=== PATIENT | male | born 1980 | race Two or more races ===

== ENCOUNTER 2017-06-18 07:46 | Emergency (ER) | payer OTHER ==
[2017-06-18 07:59] VITALS: BMI 38.9
[2017-06-18] MEDS ORDERED: SODIUM CHLORIDE 1,000 ML IV STA (08:12)
[2017-06-18] MEDS ORDERED: ACETAMINOPHEN 325 MG TABLET (FP) PO ONE (08:12)
[2017-06-18] MEDS ORDERED: METOCLOPRAMIDE HCL INJECTION 10 MG/2 ML VIAL IVPB ONE (08:13)
[2017-06-18] MEDS ORDERED: ACETAMINOPHEN INJECTION 100 ML IVPB ONE (08:14)
[2017-06-18] MEDS ORDERED: ONDANSETRON 4 MG/2 ML VIAL ONE (08:14)
[2017-06-18] MEDS ORDERED: METOCLOPRAMIDE HCL INJECTION 10 MG/2 ML VIAL ONE (08:15)
--- NOTE | 2017-06-18 08:18 | PDOC ---
History of Present Illness - General Chief Complaint: SIRS, Suspected/Possible Stated Complaint: NAUSEA,VOMITING Time Seen by Provider: 06/18/17 08:05 History Source: Patient - History of Present Illness Timing/Duration: reports: other Associated Symptoms: reports: dizziness, fever/chills, headache, lightheadedness , muscle aches. 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 - Family Disease History Family Disease History: CA: Grandparents (Grandfather prostate) - Immunization History Immunization Up to Date: No - Suicide/Smoking/Psychosocial Hx Smoking History: Never smoked Have you smoked in the past 12 months: No Number of Cigarettes Smoked Daily: 2 Information on smoking cessation initiated: No Hx Alcohol Use: No Drug/Substance Use Hx: No Substance Use Type: None Hx Substance Use Treatment: No Review of Systems - Review of Systems Constitutional: Yes: Chills, Fever, Malaise HEENTM: No: Ear Pain, Throat Pain Respiratory: No: Cough, Shortness of Breath Cardiac (ROS): No: Chest Pain ABD/GI: Yes: Diarrhea, Nausea, Vomiting. No: Abdominal cramping : No: Dysuria, Hematuria *Physical Exam - Vital Signs Last Vital Signs Temp Pulse Resp BP Pulse Ox 101.7 F H 110 H 18 134/76 98 06/18/17 07:55 06/18/17 07:55 06/18/17 07:55 06/18/17 07:55 06/18/17 07:55 - Physical Exam General Appearance: Yes: Appropriately Dressed. No: Apparent Distress HEENT: positive: Normal ENT Inspection, Normal Voice. negative: Scleral Icterus (R), Scleral Icterus (L) Neck: positive: Supple. negative: Lymphadenopathy (R), Lymphadenopathy (L) Respiratory/Chest: positive: Lungs Clear, Normal Breath Sounds. negative: Respiratory Distress Cardiovascular: positive: S1, S2, Tachycardia Gastrointestinal/Abdominal: positive: Other (easily reducible ventral hernia to upper mid abd, no ttp) Musculoskeletal: negative: CVA Tenderness Integumentary: positive: Dry, Warm Neurologic: positive: Fully Oriented, Alert, Normal Mood/Affect Heart Score/ECG Review - ECG Intrepretation Comment:: 06/18/17 10:45 Twelve-lead EKG was performed and reviewed by me. There is normal sinus rhythm with a normal rate. The axis is normal. The intervals are normal. There are no ST or T wave abnormalities. Impression: Normal twelve-lead EKG ED Treatment Course - LABORATORY CBC & Chemistry Diagram: 06/18/17 07:40 06/18/17 07:40 - RADIOLOGY Radiology Studies Ordered: Category Date Time Status CHEST PA & LAT [RAD] Stat Radiology 06/18/17 08:12 Ordered Medical Decision Making - Medical Decision Making 06/18/17 08:13 37-year-old male denies any past medical history here with malaise with headache , dizziness, body aches including chest pain, nausea, vomiting, diarrhea and fever 3 days. No abd pain, photophobia, neck stiffness, rash, cough, sob, ear ache or sore throat. States he has a set of twin daughters at home with similar symptoms. No sick contacts. See exam Possibly viral syndrome especially given sick contacts at home, r/o influenza, unlikely PNA and no e/o meningitis Tachy and febrile but non-toxic appearing w/ unremarkable exam otherwise -tylenol -reglan -IVF -labs -cxr -reassess 06/18/17 08:16 06/18/17 10:33 06/18/17 10:44 Labs, chest x-ray and EKG all unremarkable. Patient reports feeling better with meds. Vitals improved and pt able to marti po in ED. Will dc with supportive treatment 06/18/17 10:46 *DC/Admit/Observation/Transfer Diagnosis at time of Disposition: Viral syndrome - Discharge Dispostion Disposition: HOME Condition at time of disposition: Improved - Referrals - Patient Instructions Printed Discharge Instructions: DI for Viral Syndrome Additional Instructions: Rest, drink plenty of fluids and take motrin or tylenol as needed for pain/fever - Post Discharge Activity
[2017-06-18 08:45] LABS: BASOPHIL 0.3 % (0-2.0); MCH 29.9 pg (25.7-33.7); MCHC 33.9 g/dl (32.0-35.9); MEAN CELL VOLUME 88.4 fl (80-96); MEAN PLT VOLUME 6.6 fl (7.5-11.1); PLATELET COUNT 192 K/MM3 (134-434); RDW 13.7 % (11.9-15.9); WHITE BLOOD COUNT 5.7 K/mm3 (4.0-10.0)
[2017-06-18 08:46] LABS: URINE APPEARANCE CLEAR; URINE BILIRUBIN NEGATIVE (NEGATIVE); URINE BLOOD NEGATIVE (NEGATIVE); URINE COLOR YELLOW; URINE GLUCOSE (UA) NEGATIVE (NEGATIVE); URINE KETONE NEGATIVE (NEGATIVE); URINE LEUK ESTERASE NEGATIVE (NEGATIVE); URINE NITRITE NEGATIVE (NEGATIVE)
[2017-06-18 08:56] LABS: URINE MUCUS RARE; URINE PROTEIN 1+ (NEGATIVE); URINE RBC 17 /hpf (0-3); URINE WBC 1 /hpf (3-5)
[2017-06-18 09:44] LABS: ALBUMIN 4.1 g/dl (3.4-5.0); ANION GAP 8 (8-16); CALCIUM 8.5 mg/dL (8.5-10.1); CO2 29 mmol/L (21-32); GLUCOSE,RANDOM 106 mg/dL (74-106); SGPT/ALT 59 U/L (12-78)
[2017-06-18 09:47] LABS: ALK PHOS 82 U/L (45-117); BILIRUBIN,TOTAL 1.1 mg/dL (0.2-1.0); CREATININE 1.1 mg/dL (0.7-1.3); SGOT/AST 49 U/L (15-37); TOT PROT 7.7 g/dl (6.4-8.2)
[2017-06-18 10:37] VITALS: BP 116/65; PULSE 86; TEMP 99
[2017-06-18 14:11] LABS: URINE LEUK ESTERASE Negative (NEGATIVE)
--- NOTE | 2017-06-18 22:03 | EKG ---
Test Reason : Blood Pressure : / mmHG Vent. Rate : 081 BPM Atrial Rate : 081 BPM P-R Int : 140 ms QRS Dur : 100 ms QT Int : 376 ms P-R-T Axes : 044 030 036 degrees QTc Int : 436 ms NORMAL SINUS RHYTHM INCOMPLETE RBBB WHEN COMPARED WITH ECG OF 22-SEP-2014 12:09, NO SIGNIFICANT CHANGE WAS FOUND Confirmed by SAIDA BOYD MD ([id number]) on 06/18/2017 10:02:40 PM Referred By: Confirmed By:SAIDA BOYD MD
== END 2017-06-18 10:53 | disposition home or self-care (01) ==
LOC: JER 07:46
PROC: 3E0337Z Introduction of Electrolytic and Water Balance Substance into Peripheral Vein, Percutaneous Approach (ICD-10-PCS; principal; 2017-06-18)
PROC: 3E033GC Introduction of Other Therapeutic Substance into Peripheral Vein, Percutaneous Approach (ICD-10-PCS; 2017-06-18)
DX: B34.9 Viral infection, unspecified (principal)
CPT/HCPCS: 36415; 71020-TC; 80053; 81003; 81015; 83605; 85025; 87086; 87804; 93005; 93010; 96361; 96374; 99285-25

== ENCOUNTER 2018-08-09 08:22 | Emergency (ER) | payer OTHER ==
--- NOTE | 2018-08-09 08:32 | PDOC ---
History of Present Illness - History of Present Illness Initial Comments: This patient is a 38 year old male with PMHx of juvenile arthritis, who presents with left arm, hand, and foot numbness, tingling, and generalized weakness since 6 am this morning. He states that the numbness and tingling comes and goes. He also notes feeling lightheaded and occasionally has sharp pains along his left side/flank. Patient also reports that for the past 3 weeks , he has been experiencing nausea (constant), vomit, and leg spasms/cramps. He also reports loose watery stools (no blood). 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 He states that he lost a lot of weight over the past year since Aug 2017 329 --> 250lbs. Social Hx: Denies cigarette, alcohol, or marijuana use. Works 3 jobs (parking lot maintenance, stock) Family Hx: TIA(mother) and diabetes. Grandfather prostate [place] PMD: Sandy Morrow M.D.(last saw 2 yrs ago) <Betsy Hoyos - Last Filed: 08/09/18 11:04> <Km Santillan - Last Filed: 08/09/18 13:55> - General Chief Complaint: Weakness Stated Complaint: WEAKNESS Time Seen by Provider: 08/09/18 08:32 Past History <Betsy Hoyos - Last Filed: 08/09/18 11:04> - Past Medical History COPD: No Kidney Stones: Yes (X2) - Family Disease History Family Disease History: CA: Grandparents (Grandfather prostate) - Immunization History Immunization Up to Date: No - Suicide/Smoking/Psychosocial Hx Smoking History: Never smoked Have you smoked in the past 12 months: No Number of Cigarettes Smoked Daily: 2 Information on smoking cessation initiated: No Hx Alcohol Use: No Drug/Substance Use Hx: No Substance Use Type: None Hx Substance Use Treatment: No <Km Santillan - Last Filed: 08/09/18 13:55> - Past Medical History Allergies/Adverse Reactions: Allergies Allergy/AdvReac Type Severity Reaction Status Date / Time No Known Allergies Allergy Verified 08/09/18 08:28 Home Medications: Ambulatory Orders Ondansetron [Zofran *Odt*] 8 mg SL TID #20 od.tablet 08/09/18 Review of Systems - Review of Systems Comments:: CONSTITUTIONAL: No fever, no chills, +generalized weakness. EYES: No visual changes ENT: No ear pain, no sore throat CARDIOVASCULAR: No chest pain, no palpitations RESPIRATORY: No cough, no SOB GI: No abdominal pain, +nausea, +vomiting, no constipation, +diarrhea GENITOURINARY: No dysuria, no frequency, no hematuria MUSKULOSKELETAL: +left side pain. +legs spasms/cramps. No back pain, no joint pain. SKIN: No rash NEURO: +left hand, arm and foot numbness and tingling. +lightheaded. No headache <Betsy Hoyos - Last Filed: 08/09/18 11:04> *Physical Exam - Vital Signs Last Vital Signs Temp Pulse Resp BP Pulse Ox 99.6 F 95 H 16 139/81 100 08/09/18 08:22 08/09/18 08:22 08/09/18 08:22 08/09/18 08:22 08/09/18 08:22 - Physical Exam Comments: CONSTITUTIONAL: Well-appearing; well-nourished; in no apparent distress HEAD: Normocephalic; atraumatic EYES: PERRL; EOM intact ENMT: External appears normal; normal oropharynx NECK: Supple; nontender; no cervical lymphadenopathy CARD: Normal S1, S2; no murmurs, rubs, or gallops RESP: Normal chest excursion with respiration; breath sounds clear and equal bilaterally; no wheezes, rhonchi, or rales ABD: Soft, non-distended; non-tender; no palpable organomegaly, no palpable hernias EXT: Normal ROM in all four extremities; non-tender to palpation; distal pulses intact SKIN: Warm, dry, no rash NEURO: No focal neurological deficiencies.CN II-XII grossly intact. Strength prox and distally 5/5 throughout. Sensation grossly intact to light touch. No cerebellar signs, no dysmetria, bilateral finger to nose and heel to ventura equal and symmetric.No pronator drift. Speech clear. <Betsy Hoyos - Last Filed: 08/09/18 11:04> - Vital Signs Last Vital Signs Temp Pulse Resp BP Pulse Ox 99.6 F 95 H 16 139/81 100 08/09/18 08:22 08/09/18 08:22 08/09/18 08:22 08/09/18 08:22 08/09/18 08:22 <Km Santillan - Last Filed: 08/09/18 13:55> Moderate Sedation - Procedure Monitoring Vital Signs: Procedure Monitoring Vital Signs Temperature 99.6 F 08/09/18 08:22 Pulse Rate 95 H 08/09/18 08:22 Respiratory Rate 16 08/09/18 08:22 Blood Pressure 139/81 08/09/18 08:22 O2 Sat by Pulse Oximetry (%) 100 08/09/18 08:22 <Betsy Hoyos - Last Filed: 08/09/18 11:04> - Procedure Monitoring Vital Signs: Procedure Monitoring Vital Signs Temperature 99.6 F 08/09/18 08:22 Pulse Rate 95 H 08/09/18 08:22 Respiratory Rate 16 08/09/18 08:22 Blood Pressure 139/81 08/09/18 08:22 O2 Sat by Pulse Oximetry (%) 100 08/09/18 08:22 <Km Santillan - Last Filed: 08/09/18 13:55> Heart Score/ECG Review - ECG Intrepretation Comment:: Vent rate 83 bpm Normal sinus rhythm Incomplete right bundle branch block Taken 09-Aug-2018 8:33:38 08/09/18 08:35 <Betsy Hoyos - Last Filed: 08/09/18 11:04> ED Treatment Course - LABORATORY CBC & Chemistry Diagram: 08/09/18 09:36 08/09/18 09:36 <Betsy Hoyos - Last Filed: 08/09/18 11:04> - LABORATORY CBC & Chemistry Diagram: 08/09/18 09:36 08/09/18 09:36 <Km Santillan - Last Filed: 08/09/18 13:55> Medical Decision Making - Medical Decision Making 08/09/18 10:56 Patient is a 38-year-old male who presents to the ER with multiple vague complaints including intermittent nausea for the past 3 weeks without associated abdominal pain, intermittent diarrhea, dizziness, lightheadedness, muscle cramping, left hand and arm paresthesias as well as left foot paresthesias that started on the day of arrival. In the ER, patient is awake and alert, afebrile, nontoxic appearing. Neurological exam revealed no focal deficits; distal pulses are equal and present bilaterally. Cap refill is normal bilaterally. Fine touch and proprioception are intact bilaterally to upper and lower extremities. DTRs are present and normal bilaterally. Initial abdominal exam revealed no focal tenderness. Repeat abdominal exam after patient complained of mild nonspecific left upper quadrant pain revealed minimal discomfort on deep palpation only. Will administer Pepcid and Maalox. We'll continue with IV fluid resuscitation. 08/09/18 13:51 Patient resting comfortably. Patient able to tolerate a meal in the ER. Repeat abdominal exam reveals no focal tenderness. I do not suspect SBO or acute diverticulitis or colitis at this time. Will discharge with antiemetics, H2 blockers and outpatient follow-up. <Km Santillan - Last Filed: 08/09/18 13:55> *DC/Admit/Observation/Transfer - Attestations Scribe Attestion: 08/09/18 09:18 Documentation prepared by Betsy Hoyos, acting as medical delivery driver for Km Santillan MD. <Betsy Hoyos - Last Filed: 08/09/18 11:04> - Attestations Physician Attestion: 08/09/18 10:56 The documentation was prepared by the scribe under my direct supervision. I have reviewed the documentation which correctly represents the findings, medical decision-making and critical action taken by me. <Km Santillan - Last Filed: 08/09/18 13:55> Diagnosis at time of Disposition: Abdominal pain Qualifiers: Abdominal location: left upper quadrant Qualified Code(s): R10.12 - Left upper quadrant pain - Discharge Dispostion Disposition: HOME Condition at time of disposition: Stable - Referrals Referrals: Juan David Manzano DO [Staff Physician] - - Patient Instructions Printed Discharge Instructions: DI for Abdominal Pain-Adult, DI for Nausea -- Adult Additional Instructions: Please take Zantac-150 mg twice daily. Follow-up with GI. Return immediately for worsening symptoms. - Post Discharge Activity Forms/Work/School Notes: Back to Work
[2018-08-09 08:33] VITALS: BMI 30.8
[2018-08-09] MEDS ORDERED: SODIUM CHLORIDE 1,000 ML IV STA ×2 (09:07→10:48)
[2018-08-09 10:32] LABS: ALBUMIN 4.1 g/dl (3.4-5.0); ALK PHOS 66 U/L (45-117); ANION GAP 7 MMOL/L (8-16); BILIRUBIN,TOTAL 0.8 mg/dL (0.2-1); BLOOD UREA NITROGEN 12 mg/dL (7-18); CHLORIDE 101 mmol/L (98-107); CO2 29 mmol/L (21-32); CREATININE 1.1 mg/dL (0.55-1.3); GLUCOSE,RANDOM 82 mg/dL (74-106); MAGNESIUM 1.9 mg/dL (1.8-2.4); POTASSIUM 4.2 mmol/L (3.5-5.1); SGOT/AST 29 U/L (15-37); SGPT/ALT 29 U/L (13-61); SODIUM 137 mmol/L (136-145); TOT PROT 7.4 g/dl (6.4-8.2)
[2018-08-09 10:34] LABS: INR 0.97 (0.83-1.09); PROTHROMBIN TIME (PATIENT) 11.5 SEC (9.7-13.0)
[2018-08-09 10:52] LABS: URINE APPEARANCE CLEAR; URINE BILIRUBIN NEGATIVE (<2.0 mg/dL); URINE COLOR YELLOW; URINE GLUCOSE (UA) NEGATIVE (NEGATIVE); URINE KETONE NEGATIVE (NEGATIVE); URINE LEUK ESTERASE NEGATIVE (NEGATIVE); URINE NITRITE NEGATIVE (NEGATIVE); URINE PROTEIN NEGATIVE (NEGATIVE)
[2018-08-09] MEDS ORDERED: MAG HYDROX/AL HYDROX/SIMETH 30 ML UNIT-DOSE CUP ONE (10:57)
[2018-08-09] MEDS ORDERED: MAG HYDROX/AL HYDROX/SIMETH -MYLANTA- ORAL SUSPENSION PO ONE (11:01)
[2018-08-09] MEDS ORDERED: FAMOTIDINE 20 MG/50 ML IVPB 20 MG/50 ML MG IVPB ONE (11:01)
[2018-08-09 11:25] LABS: BASO % 0.7 % (0-2.0); EOS % 0.6 % (0-4.5); HEMATOCRIT 45.7 % (35.4-49); HEMOGLOBIN 15.6 GM/dL (11.7-16.9); LYMPH % 12.3 % (8-40); MCH 30.9 pg (25.7-33.7); MCHC 34.1 g/dl (32.0-35.9); MEAN CELL VOLUME 90.6 fl (80-96); MEAN PLT VOLUME 7.2 fl (7.5-11.1); MONO % 13.6 % (3.8-10.2); NEUT % 72.8 % (42.8-82.8); PLATELET COUNT 198 K/MM3 (134-434); RBC 5.04 M/mm3 (4.00-5.60); RDW 13.4 % (11.9-15.9)
[2018-08-09] MEDS ORDERED: ACETAMINOPHEN 325 MG TABLET (FP) ONE (12:21)
[2018-08-09] MEDS ORDERED: ACETAMINOPHEN 500 MG TABLET (FP) PO ONE (13:11)
--- NOTE | 2018-08-09 15:00 | EKG ---
Test Reason : Blood Pressure : / mmHG Vent. Rate : 083 BPM Atrial Rate : 083 BPM P-R Int : 144 ms QRS Dur : 104 ms QT Int : 364 ms P-R-T Axes : 044 034 037 degrees QTc Int : 427 ms NORMAL SINUS RHYTHM INCOMPLETE RIGHT BUNDLE BRANCH BLOCK BORDERLINE ECG WHEN COMPARED WITH ECG OF 18-JUN-2017 10:37, NO SIGNIFICANT CHANGE WAS FOUND Confirmed by TING FONTAINE MD ([id number]) on 08/09/2018 3:00:35 PM Referred By: Confirmed By:TING FONTAINE MD
[2018-08-09 15:38] VITALS: BP 120/63; PULSE 73; TEMP 98
== END 2018-08-09 15:37 | disposition home or self-care (01) ==
LOC: JER 08:22
PROC: 3E033GC Introduction of Other Therapeutic Substance into Peripheral Vein, Percutaneous Approach (ICD-10-PCS; principal; 2018-08-09)
PROC: 3E0337Z Introduction of Electrolytic and Water Balance Substance into Peripheral Vein, Percutaneous Approach (ICD-10-PCS; 2018-08-09)
DX: R10.12 Left upper quadrant pain (principal)
CPT/HCPCS: 36415; 80053; 81003; 83735; 85025; 85610; 93005; 93010; 99284-25; J7030

== ENCOUNTER 2019-03-14 07:22 | Emergency (ER) | payer OTHER ==
[2019-03-14 07:37] VITALS: BP 136/82; PULSE 74; TEMP 98.4; BMI 35.4
[2019-03-14] MEDS ORDERED: SODIUM CHLORIDE 1,000 ML IV STA (08:50)
[2019-03-14] MEDS ORDERED: PANTOPRAZOLE SODIUM 40 MG in SODIUM CHLORIDE 100 ML IVPB ONE (08:50)
[2019-03-14] MEDS ORDERED: ACETAMINOPHEN 1000 MG/100 ML VIAL (NON FORMULARY) IVPB ONE (08:50)
--- NOTE | 2019-03-14 09:13 | PDOC ---
Documentation entered by Lea Aaron SCRIBE, acting as scribe for Mario Dunn MD. Mario Dunn MD: This documentation has been prepared by the Galen conn Sammi, SCRIBE, under my direction and personally reviewed by me in its entirety. I confirm that the documentation accurately reflects all work, treatment, procedures, and medical decision making performed by me. History of Present Illness - General Chief Complaint: Chest Pain Stated Complaint: CHEST PAIN,ABDOMINAL PAIN,HEADACHE Time Seen by Provider: 03/14/19 08:17 - History of Present Illness Initial Comments: 03/14/19 08:54 The patient is a 38 year old male who presents to the emergency department for evaluation of 2 days of left sided abdominal pain with associated vomiting and diarrhea. Patient reports history of bilateral kidney stones back in August and notes removal of the stones on the left side. He states his pain today is somewhat similar to when he had the stones but localized to his LLQ. Denies F/ C. Pt also reports intermittent chest pain x 6 months. Denies exertional or pleuritic nature of pain. Denies SOB. Denies aggravating or alleviating factors. PCP: Jayesh Morrow Medical history: kidney stones Allergies: NKA Past History - Past Medical History Allergies/Adverse Reactions: Allergies Allergy/AdvReac Type Severity Reaction Status Date / Time No Known Allergies Allergy Verified 03/14/19 07:37 Home Medications: Ambulatory Orders Ondansetron [Zofran *Odt*] 8 mg SL TID #20 od.tablet 08/09/18 COPD: No Kidney Stones: Yes (X2) Other medical history: ARTHRITIS - Family Disease History Family Disease History: CA: Grandparents (Grandfather prostate) - Immunization History Immunization Up to Date: No - Suicide/Smoking/Psychosocial Hx Smoking History: Never smoked Have you smoked in the past 12 months: No Number of Cigarettes Smoked Daily: 2 Hx Alcohol Use: No Drug/Substance Use Hx: No Substance Use Type: None Hx Substance Use Treatment: No Review of Systems - Review of Systems Comments:: 03/14/19 08:54 GENERAL/CONSTITUTIONAL: No fever or chills. No weakness. HEAD, EYES, EARS, NOSE AND THROAT: No change in vision. No ear pain or discharge. No sore throat. CARDIOVASCULAR: (+)chest pain. no shortness of breath, no loss of consciousness RESPIRATORY: No cough, wheezing, or hemoptysis. GASTROINTESTINAL: (+)left sided abdominal pain (+)vomiting and diarrhea. GENITOURINARY: No dysuria, frequency, or change in urination. MUSCULOSKELETAL: No joint or muscle swelling or pain. No neck or back pain. SKIN: No rash NEUROLOGIC: No vertigo, no change in strength/sensation. *Physical Exam - Vital Signs Last Vital Signs Temp Pulse Resp BP Pulse Ox 98.4 F 74 16 136/82 99 03/14/19 07:29 03/14/19 07:29 03/14/19 07:29 03/14/19 07:29 03/14/19 07:29 - Physical Exam Comments: 03/14/19 09:14 "GENERAL: Awake, alert, and fully oriented, in no acute distress. HEAD: No signs of trauma EYES: PERRLA, EOMI, sclera anicteric, conjunctiva clear ENT: Auricles normal inspection, hearing grossly normal, nares patent, oropharynx clear without exudates. Moist mucosa NECK: Nontender, no stepoffs, Normal ROM, supple, no lymphadenopathy, JVD, or masses LUNGS: Breath sounds equal, clear to auscultation bilaterally. No wheezes, and no crackles HEART: Regular rate and rhythm, normal S1 and S2, no murmurs, rubs or gallops ABDOMEN: + RLQ TTP, normoactive bowel sounds. No guarding, no rebound. No masses EXTREMITIES: Normal range of motion, no edema. No clubbing or cyanosis. No cords, erythema, or tenderness NEUROLOGICAL: Cranial nerves II through XII intact. 5/5 strength and sensation in all extremities, Normal speech, normal gait, normal cerebellar function SKIN: Warm, Dry, normal turgor, no rashes or lesions noted. : normal scrotum, no masses, no tenderness Medical Decision Making - Medical Decision Making 03/14/19 09:14 38 M with N+V and abdominal pain. Reports LLQ pain but is tender in RLQ. Will r/ o appy. Also consider renal colic given h/o stones. Pt with intermittent chest pain x 7 months. Atypical in nature, EKG wnl. Will r/o ACS with single trop. - Labs, trop, lipase - UA - CTAP - IVF, pain control 03/14/19 11:03 Pt could not be found in stretcher. Labs and imaging were not yet obtained. Pt likely eloped from ED. I called pt's phone twice with no response. *DC/Admit/Observation/Transfer Diagnosis at time of Disposition: Abdominal pain, Chest pain, Pain - Discharge Dispostion Disposition: ELOPED Condition at time of disposition: Unchanged/Unknown - Referrals Referrals: Jayesh Morrow MD [Primary Care Provider] - - Patient Instructions - Post Discharge Activity - Attestations Physician Attestion: 03/14/19 11:04 I, Dr. Mario Dunn MD, attest that this document has been prepared under my direction and personally reviewed by me in its entirety. I further attest, that it accurately reflects all work, treatment, procedures and medical decision -making performed by me.
--- NOTE | 2019-03-14 10:06 | EKG ---
Test Reason : Blood Pressure : / mmHG Vent. Rate : 070 BPM Atrial Rate : 070 BPM P-R Int : 140 ms QRS Dur : 106 ms QT Int : 386 ms P-R-T Axes : 049 042 044 degrees QTc Int : 416 ms NORMAL SINUS RHYTHM NORMAL ECG WHEN COMPARED WITH ECG OF 09-AUG-2018 08:33, INCOMPLETE RIGHT BUNDLE BRANCH BLOCK IS NO LONGER PRESENT Confirmed by ZHEN HERNANDEZ, TING ([id number]) on 03/14/2019 10:05:51 AM Referred By: Confirmed By:TING FONTAINE MD
== END 2019-03-14 10:30 | disposition home or self-care (01) ==
LOC: JER 07:22
DX: R07.9 Chest pain, unspecified (principal); R10.9 Unspecified abdominal pain; Z87.442 Personal history of urinary calculi
CPT/HCPCS: 93005; 93010; 99282-25

== ENCOUNTER 2019-05-01 09:29 | Emergency (ER) | payer OTHER ==
[2019-05-01 09:37] VITALS: BP 119/73; PULSE 71; TEMP 98.4; BMI 35.8
--- NOTE | 2019-05-01 10:04 | PDOC ---
History of Present Illness - General Chief Complaint: Weakness Stated Complaint: WEAKNESS Time Seen by Provider: 05/01/19 10:00 History Source: Patient - History of Present Illness Timing/Duration: other (this am) Past History - Past Medical History Allergies/Adverse Reactions: Allergies Allergy/AdvReac Type Severity Reaction Status Date / Time No Known Allergies Allergy Verified 03/14/19 07:37 Home Medications: Ambulatory Orders NK [No Known Home Medication] 05/01/19 COPD: No Kidney Stones: Yes (X2) - Immunization History Immunization Up to Date: No - Psycho Social/Smoking Cessation Hx Smoking History: Never smoked Have you smoked in the past 12 months: No Number of Cigarettes Smoked Daily: 2 Information on smoking cessation initiated: No Hx Alcohol Use: No Drug/Substance Use Hx: No Substance Use Type: None Hx Substance Use Treatment: No Review of Systems - Review of Systems Respiratory: No: Shortness of Breath Cardiac (ROS): No: Chest Pain ABD/GI: No: Nausea, Vomiting Neurological: Yes: Numbness, Tingling. No: Headache, Weakness, Dizziness *Physical Exam - Vital Signs Last Vital Signs Temp Pulse Resp BP Pulse Ox 98.4 F 71 18 119/73 100 05/01/19 09:33 05/01/19 09:33 05/01/19 09:33 05/01/19 09:33 05/01/19 09:33 - Physical Exam General Appearance: Yes: Appropriately Dressed. No: Apparent Distress HEENT: positive: Normal Voice Neck: positive: Supple Respiratory/Chest: positive: Lungs Clear, Normal Breath Sounds. negative: Respiratory Distress Cardiovascular: positive: Regular Rate, S1, S2 Integumentary: positive: Dry, Warm Neurologic: positive: soa integration developer II-XII NML intact, Fully Oriented, Alert, Normal Mood/ Affect, Motor Strength 5/5, Finger to Nose (no drift, Jack intact, no ataxia) Medical Decision Making - Medical Decision Making 05/01/19 10:01 38 yo M, h/o kidney stones, GERD, ? anxiety, here w/ complaints of numbness to L "cheekbones" that started at 2:45 AM today and has been mostly constant. Also complaining of some tingling to his left hand that has since resolved. Pt states he tends to sleep on his L side. No focal weakness, headache, dizziness, vertigo, visual changes, nausea or vomiting. Patient endorses chronic chest pain which has not changed in baseline. No shortness of breath or diaphoresis. see exam L facial numbness/hand tingling this am Since improved Stable w/ no focal deficit here -CTH though very low suspicion of CVA -No utility in getting labs 05/01/19 11:02 CTH an EKG negative for acute pathology. Pt currently asymptomatic . Stable for dc to f/u with PMD as needed Discharge - Discharge Information Problems reviewed: Yes Clinical Impression/Diagnosis: Numbness and tingling Condition: Stable Disposition: HOME - Follow up/Referral Referrals: Jayesh Morrow MD [Primary Care Provider] - - Patient Discharge Instructions Patient Printed Discharge Instructions: DI for Numbness/tingling Additional Instructions: The cause of your symptoms are unclear as your exam and CT head were normal today. If symptoms persist please follow-up with your PMD - Post Discharge Activity
--- NOTE | 2019-05-01 10:37 | PDOC ---
*Physical Exam - Vital Signs Last Vital Signs Temp Pulse Resp BP Pulse Ox 98.4 F 71 18 119/73 100 05/01/19 09:33 05/01/19 09:33 05/01/19 09:33 05/01/19 09:33 05/01/19 09:33 Medical Decision Making - Medical Decision Making 05/01/19 10:36 Patient was seen as well by SHUN Lombardo who performed the history and physical exam and has also dictated a record of this visit. Patient provided with appropriate treatment management and follow-up care instructions. I was available for consultation EKG reviewed - NSR rate of 72 bpm, axis nml, RSR', no st elevation or depression CT head - no ICH For further details please see PA dictation. 05/01/19 12:06 05/01/19 12:07 Discharge - Discharge Information Problems reviewed: Yes Clinical Impression/Diagnosis: Numbness and tingling Condition: Stable Disposition: HOME - Follow up/Referral Referrals: Jayesh Morrow MD [Primary Care Provider] - - Patient Discharge Instructions Patient Printed Discharge Instructions: DI for Numbness/tingling Additional Instructions: The cause of your symptoms are unclear as your exam and CT head were normal today. If symptoms persist please follow-up with your PMD - Post Discharge Activity
--- NOTE | 2019-05-02 09:58 | EKG ---
Test Reason : Blood Pressure : / mmHG Vent. Rate : 072 BPM Atrial Rate : 072 BPM P-R Int : 136 ms QRS Dur : 104 ms QT Int : 386 ms P-R-T Axes : 037 034 031 degrees QTc Int : 422 ms NORMAL SINUS RHYTHM INCOMPLETE RIGHT BUNDLE BRANCH BLOCK BORDERLINE ECG WHEN COMPARED WITH ECG OF 14-MAR-2019 07:32, INCOMPLETE RIGHT BUNDLE BRANCH BLOCK IS NOW PRESENT Confirmed by ZHEN HERNANDEZ, TING ([id number]) on 05/02/2019 9:58:25 AM Referred By: Confirmed By:TING FONTAINE MD
== END 2019-05-01 11:05 | disposition home or self-care (01) ==
LOC: JER 09:29
DX: R20.0 Anesthesia of skin (principal); R07.9 Chest pain, unspecified; K21.9 Gastro-esophageal reflux disease without esophagitis; Z87.442 Personal history of urinary calculi
CPT/HCPCS: 70450-TC; 93005; 93010; 99283-25

== ENCOUNTER 2020-07-28 09:43 | Emergency (ER) | payer OTHER ==
[2020-07-28 10:00] VITALS: BP 143/84; PULSE 88; TEMP 98.7; BMI 37.8
[2020-07-28] MEDS ORDERED: LACTATED RINGERS SOLUTION 1000 ML INFUS.BAG IV ONE (10:38)
[2020-07-28 10:50] LABS: BASO % 0.6 % (0-2.0); EOS % 0.7 % (0-4.5); HEMATOCRIT 48.6 % (35.4-49); HEMOGLOBIN 16.5 GM/dL (11.7-16.9); LYMPH % 22.6 % (8-40); MCHC 33.9 g/dl (32.0-35.9); MEAN CELL VOLUME 88.6 fl (80-96); MEAN PLT VOLUME 7.1 fl (7.5-11.1); MONO % 8.3 % (3.8-10.2); NEUT % 67.8 % (42.8-82.8); PLATELET COUNT 256 K/MM3 (134-434); RBC 5.49 M/mm3 (4.00-5.60); RDW 14.2 % (11.9-15.9); WHITE BLOOD COUNT 5.6 K/mm3 (4.0-10.0)
[2020-07-28 11:14] LABS: POTASSIUM 4.1 mmol/L (3.5-5.1)
[2020-07-28 11:16] LABS: CALCIUM 9.5 mg/dL (8.5-10.1)
[2020-07-28 11:17] LABS: ALBUMIN 4.3 g/dl (3.4-5.0); BLOOD UREA NITROGEN 10.2 mg/dL (7-18)
[2020-07-28 11:20] LABS: CREATININE 1.1 mg/dL (0.55-1.3); EPI CELLS 3 /uL (0-25.1); HYALINE CASTS 0 /uL (0-3.1); URINE APPEARANCE CLEAR; URINE BACTERIA 9 /uL (0-1359); URINE BILIRUBIN NEGATIVE (NEGATIVE); URINE COLOR YELLOW; URINE GLUCOSE (UA) NEGATIVE (NEGATIVE); URINE KETONE NEGATIVE (NEGATIVE); URINE LEUK ESTERASE NEGATIVE (NEGATIVE); URINE NITRITE NEGATIVE (NEGATIVE); URINE PROTEIN NEGATIVE (NEGATIVE); URINE RBC 145 /uL (0-23.9); URINE UROBILINOGEN 0.2 mg/dL (0.2-1.0); URINE WBC 6 /uL (0-25.8)
[2020-07-28 11:21] LABS: TOT PROT 7.6 g/dl (6.4-8.2)
== END 2020-07-28 13:26 | disposition home or self-care (01) ==
LOC: JER 09:43
DX: N20.0 Calculus of kidney (principal)
CPT/HCPCS: 36415; 74018-TC-FY; 76775-TC; 76856-TC; 80053; 81003; 84484; 85025; 87086; 93005; 93010; 99284-25; C9803; U0003

== ENCOUNTER 2020-08-16 06:06 | Emergency (ER) | payer OTHER ==
[2020-08-16 06:53] VITALS: BP 123/66; PULSE 83; TEMP 98.8; BMI 37.5
[2020-08-16 08:29] LABS: POTASSIUM 4.2 mmol/L (3.5-5.1)
[2020-08-16 08:32] LABS: ALBUMIN 4.5 g/dl (3.4-5.0); BLOOD UREA NITROGEN 8.2 mg/dL (7-18); CALCIUM 9.5 mg/dL (8.5-10.1); MAGNESIUM 2.1 mg/dL (1.8-2.4)
[2020-08-16 08:35] LABS: CREATININE 1.1 mg/dL (0.55-1.3)
[2020-08-16 08:37] LABS: BILIRUBIN,TOTAL 1.7 mg/dL (0.2-1); TOT PROT 7.9 g/dl (6.4-8.2)
[2020-08-16 08:41] LABS: HEMATOCRIT 49.4 % (35.4-49); HEMOGLOBIN 16.9 GM/dL (11.7-16.9); MCH 30.4 pg (25.7-33.7); MCHC 34.2 g/dl (32.0-35.9); MEAN PLT VOLUME 7.3 fl (7.5-11.1); PLATELET COUNT 250 K/MM3 (134-434); RBC 5.55 M/mm3 (4.00-5.60); RDW 13.9 % (11.9-15.9); WHITE BLOOD COUNT 4.7 K/mm3 (4.0-10.0)
== END 2020-08-16 09:15 | disposition home or self-care (01) ==
LOC: JER 06:06
DX: R11.0 Nausea (principal)
CPT/HCPCS: 36415; 80053; 83735; 84443; 85027; 99283-25

== ENCOUNTER 2020-09-29 05:34 | Day surgery (SDC) | payer OTHER ==
[2020-09-25 18:06] VITALS: BMI 34.0
[2020-09-29] MEDS ORDERED: MIDAZOLAM HCL 2 MG/2 ML SINGLE DOSE VIAL ONE (11:12)
[2020-09-29] MEDS ORDERED: PROPOFOL 20 ML ONE (11:12)
[2020-09-29] MEDS ORDERED: KETOROLAC TROMETHAMINE 30 MG/1 ML VIAL ONE (16:47)
[2020-09-29] MEDS ORDERED: DESFLURANE GAS 240 ML BOTTLE IH ONE (16:55)
[2020-09-29] MEDS ORDERED: oxyCODONE HCL 5 MG TABLET PO PRN (17:14)
[2020-09-29] MEDS ORDERED: ONDANSETRON 4 MG/2 ML VIAL IVPUSH PRN (17:14)
[2020-09-29] MEDS ORDERED: LACTATED RINGERS SOLUTION 1,000 ML IV SCH (17:15)
[2020-09-29 18:15] VITALS: BP 120/79; PULSE 73; TEMP 97.6
== END 2020-09-29 18:10 | disposition home or self-care (01) ==
LOC: JASU-SURG 05:34
PROVIDERS: ATTEND Urology
PROC: 0TF4XZZ Fragmentation in Left Kidney Pelvis, External Approach (ICD-10-PCS; principal; 2020-09-29 14:30)
DX: N20.0 Calculus of kidney (principal)

== ENCOUNTER 2021-01-16 04:07 | Emergency (ER) | payer OTHER ==
[2021-01-16 04:25] VITALS: BP 144/87; PULSE 85; TEMP 98; BMI 35.3
[2021-01-16] MEDS ORDERED: ALBUTEROL SO4 2.5/IPRATROPIUM 0.5 INH SOL 3 ML VIAL.NEB. NEB ONE ×2 (04:36→04:42)
[2021-01-16] MEDS ORDERED: DEXAMETHASONE SOD PHOSPHATE 10 MG/1 ML VIAL IVPUSH ONE (04:36)
[2021-01-16] MEDS ORDERED: DEXAMETHASONE SOD PHOSPHATE 10 MG/1 ML VIAL IM ONE (04:39)
[2021-01-16] MEDS ORDERED: DEXAMETHASONE SOD PHOSPHATE 10 MG/1 ML VIAL ONE (04:43)
== END 2021-01-16 08:19 | disposition home or self-care (01) ==
LOC: JER 04:07
PROC: 3E0F7GC Introduction of Other Therapeutic Substance into Respiratory Tract, Via Natural or Artificial Opening (ICD-10-PCS; principal; 2021-01-16)
PROC: 3E023GC Introduction of Other Therapeutic Substance into Muscle, Percutaneous Approach (ICD-10-PCS; 2021-01-16)
DX: T59.91XA Toxic effect of unspecified gases, fumes and vapors, accidental (unintentional), initial encounter (principal)
CPT/HCPCS: 71045-TC-FY; 99284-25; J1100

== ENCOUNTER 2021-02-24 06:46 | Emergency (ER) | payer OTHER ==
[2021-02-24 07:25] VITALS: BP 127/76; PULSE 76; TEMP 97.9; BMI 30.4
[2021-02-24] MEDS ORDERED: ACETAMINOPHEN 1000 MG/100 ML VIAL (NON FORMULARY) IVPB ONE (07:52)
[2021-02-24] MEDS ORDERED: SODIUM CHLORIDE 1,000 ML IV STA (07:52)
[2021-02-24] MEDS ORDERED: ACETAMINOPHEN INJECTION 100 ML IVPB ONE (07:59)
[2021-02-24 08:25] LABS: BASO % 0.4 % (0-2.0); HEMATOCRIT 48.1 % (35.4-49); HEMOGLOBIN 16.7 GM/dL (11.7-16.9); LYMPH % 26.7 % (8-40); MCH 30.8 pg (25.7-33.7); MCHC 34.7 g/dl (32.0-35.9); MEAN CELL VOLUME 88.8 fl (80-96); MEAN PLT VOLUME 6.8 fl (7.5-11.1); MONO % 10.2 % (3.8-10.2); NEUT % 61.7 % (42.8-82.8); PLATELET COUNT 252 10^3/uL (134-434); RBC 5.42 M/mm3 (4.00-5.60); RDW 13.9 % (11.9-15.9); WHITE BLOOD COUNT 4.4 K/mm3 (4.0-10.0)
[2021-02-24 08:31] LABS: PH,URINE >= 9.0 (5.0-8.0); URINE APPEARANCE CLEAR; URINE BILIRUBIN NEGATIVE (NEGATIVE); URINE COLOR YELLOW; URINE GLUCOSE (UA) NEGATIVE (NEGATIVE); URINE KETONE NEGATIVE (NEGATIVE); URINE LEUK ESTERASE NEGATIVE (NEGATIVE); URINE NITRITE NEGATIVE (NEGATIVE); URINE PROTEIN NEGATIVE (NEGATIVE)
[2021-02-24 08:34] LABS: INR 1.02 (0.83-1.09); PROTHROMBIN TIME (PATIENT) 12.5 SEC (9.7-13.0)
[2021-02-24 08:48] LABS: CALCIUM 9.1 mg/dL (8.5-10.1)
[2021-02-24 08:49] LABS: ALBUMIN 4.2 g/dl (3.4-5.0); BLOOD UREA NITROGEN 8.4 mg/dL (7-18)
[2021-02-24 08:52] LABS: CREATININE 1.1 mg/dL (0.55-1.3)
[2021-02-24 08:53] LABS: BILIRUBIN,TOTAL 1.1 mg/dL (0.2-1); TOT PROT 7.7 g/dl (6.4-8.2)
[2021-02-24] MEDS ORDERED: FAMOTIDINE 20 MG/50 ML IVPB 20 MG/50 ML MG IVPB ONE ×2 (09:57→10:09)
[2021-02-24] MEDS ORDERED: MAG HYDROX/AL HYDROX/SIMETH 30 ML UNIT-DOSE CUP PO ONE (09:57)
[2021-02-24] MEDS ORDERED: MAG HYDROX/AL HYDROX/SIMETH 30 ML UNIT-DOSE CUP ONE (10:09)
== END 2021-02-24 10:33 | disposition home or self-care (01) ==
LOC: JER 06:46
PROC: 3E033GC Introduction of Other Therapeutic Substance into Peripheral Vein, Percutaneous Approach (ICD-10-PCS; principal; 2021-02-24)
DX: N20.0 Calculus of kidney (principal); L03.031 Cellulitis of right toe
CPT/HCPCS: 36415; 74176-TC; 80053; 81003; 83690; 85025; 85610; 87086; 99285-25; J0131

== ENCOUNTER 2021-08-17 04:26 | Day surgery (SDC) | payer OTHER ==
[2021-08-13 14:35] VITALS: BMI 33.5
[2021-08-17] MEDS ORDERED: MIDAZOLAM HCL 2 MG/2 ML SINGLE DOSE VIAL ONE (14:12)
[2021-08-17] MEDS ORDERED: PROPOFOL 20 ML ONE (14:12)
[2021-08-17] MEDS ORDERED: oxyCODONE HCL 5 MG TABLET PO PRN ×2 (14:46)
[2021-08-17] MEDS ORDERED: ONDANSETRON 4 MG/2 ML VIAL IVPUSH PRN (14:46)
[2021-08-17] MEDS ORDERED: LACTATED RINGERS SOLUTION 1,000 ML IV SCH (15:00)
[2021-08-17 15:40] VITALS: TEMP 97.2
[2021-08-17 17:09] VITALS: BP 115/72; PULSE 75
== END 2021-08-17 16:15 | disposition home or self-care (01) ==
LOC: JASU-SURG 04:26
PROVIDERS: ATTEND Urology
PROC: 0TF3XZZ Fragmentation in Right Kidney Pelvis, External Approach (ICD-10-PCS; principal; 2021-08-17 13:30)
DX: N20.0 Calculus of kidney (principal)

== ENCOUNTER 2024-01-04 08:07 | Emergency (ER) | payer SELFPAY ==
[2024-01-04 08:26] VITALS: BP 124/81; PULSE 98; RESP 18; TEMP 99.7; BMI 36.5
[2024-01-04] MEDS ORDERED: IBUPROFEN 400 MG TABLET (FP) PO ONE (10:05)
[2024-01-04] MEDS: IBUPROFEN 400 MG TABLET (FP) PO ONE (10:06)
[2024-01-04] MEDS ORDERED: DEXAMETHASONE SOD PHOSPHATE 10 MG/1 ML VIAL ONE (10:23)
[2024-01-04] MEDS ORDERED: PENICILLIN G BENZATHINE 1,200,000 UNIT/2 ML PFS IM ONE (10:24)
[2024-01-04] MEDS: PENICILLIN G BENZATHINE 1,200,000 UNIT/2 ML PFS IM ONE (10:28)
[2024-01-04] MEDS: DEXAMETHASONE SOD PHOSPHATE 10 MG/1 ML VIAL IM ONE (10:29)
== END 2024-01-04 11:01 | disposition home or self-care (01) ==
LOC: JERFT 08:07 → JER 08:07
PROC: 3E023GC Introduction of Other Therapeutic Substance into Muscle, Percutaneous Approach (ICD-10-PCS; principal; 2024-01-04)
PROC: 3E02329 Introduction of Other Anti-infective into Muscle, Percutaneous Approach (ICD-10-PCS; 2024-01-04)
DX: J02.0 Streptococcal pharyngitis (principal); M79.10 Myalgia, unspecified site; R11.0 Nausea; H92.09 Otalgia, unspecified ear; R09.82 Postnasal drip; Z20.822 Contact with and (suspected) exposure to COVID-19
CPT/HCPCS: 0241U-QW; 99284-25; J1100

== ENCOUNTER 2024-02-25 23:29 | Emergency (ER) | payer SELFPAY ==
[2024-02-25 23:48] VITALS: BP 125/83; PULSE 75; RESP 18; TEMP 97; BMI 36.7
[2024-02-26] MEDS ORDERED: KETOROLAC TROMETHAMINE 15 MG/ML VIAL ONE (00:53)
[2024-02-26 01:06] LABS: BASO % 0.7 % (0-2.0); EOS % 2.3 % (0-4.5); HEMATOCRIT 44.6 % (35.4-49); HEMOGLOBIN 15.3 GM/dL (11.7-16.9); LYMPH % 31.1 % (8-40); MCH 30.3 pg (25.7-33.7); MCHC 34.4 g/dl (32.0-35.9); MEAN PLT VOLUME 6.4 fl (7.5-11.1); NEUT % 53.9 % (42.8-82.8); PLATELET COUNT 238 10^3/uL (134-434); RBC 5.07 M/mm3 (4.00-5.60); RDW 14.2 % (11.9-15.9); WHITE BLOOD COUNT 4.7 K/mm3 (4.0-10.0)
[2024-02-26] MEDS: KETOROLAC TROMETHAMINE 15 MG/ML VIAL IVPUSH ONE (01:17)
[2024-02-26 02:17] LABS: POTASSIUM 3.7 mmol/L (3.5-5.1)
[2024-02-26 02:20] LABS: CALCIUM 9.1 mg/dL (8.5-10.1)
[2024-02-26 02:21] LABS: ALBUMIN 3.9 g/dl (3.4-5.0); BLOOD UREA NITROGEN 11.7 mg/dL (7-18)
[2024-02-26 02:24] LABS: CREATININE 1.1 mg/dL (0.55-1.3)
[2024-02-26 02:25] LABS: BILIRUBIN,TOTAL 1.3 mg/dL (0.2-1); TOT PROT 6.9 g/dl (6.4-8.2)
[2024-02-26 03:28] LABS: EPI CELLS 2 /uL (0-25.1); HYALINE CASTS 0 /uL (0-3.1); PH,URINE 5.5 (5.0-8.0); URINE APPEARANCE CLEAR; URINE BACTERIA 2 /uL (0-1359); URINE BILIRUBIN NEGATIVE (NEGATIVE); URINE COLOR YELLOW; URINE GLUCOSE (UA) NEGATIVE (NEGATIVE); URINE KETONE TRACE (NEGATIVE); URINE LEUK ESTERASE TRACE (NEGATIVE); URINE NITRITE NEGATIVE (NEGATIVE); URINE PROTEIN 1+ (NEGATIVE); URINE RBC 4077 /uL (0-23.9); URINE WBC 44 /uL (0-25.8)
== END 2024-02-26 06:55 | disposition home or self-care (01) ==
LOC: JER 23:29
PROC: 3E0333Z Introduction of Anti-inflammatory into Peripheral Vein, Percutaneous Approach (ICD-10-PCS; principal; 2024-02-26)
DX: N20.0 Calculus of kidney (principal); R53.83 Other fatigue; R31.9 Hematuria, unspecified; R10.30 Lower abdominal pain, unspecified
CPT/HCPCS: 36415; 74176-TC; 80053; 81003; 85025; 87086; 99284-25